=== PATIENT | female | born 1970 | race Two or more races ===

== ENCOUNTER 2022-01-02 06:01 | Day surgery (SDC) | payer OTHER ==
[~2022-01-02] VITALS: Ht 175.3 cm; Wt 79.4 kg
[2022-01-02] MEDS ORDERED: RECTICARE30 GM TOP (09:14)
[2022-01-02] MEDS ORDERED: PERCOCET 5-3251 EACH PO (09:14)
== END 2022-01-02 11:25 | disposition home or self-care (01) ==
LOC: CIR.AMB 06:01
PROVIDERS: ATTEND Surgery
DX: K60.3 Anal fistula (principal); Z20.822 Contact with and (suspected) exposure to COVID-19

== ENCOUNTER → 2022-04-14 07:31 | Outpatient (CLI) | payer OTHER ==
[~2022-04-14 07:31] MED LIST: LIPITOR40 M1 PO; PERCOCET 5-3251 EACH PO; RECTICARE30 GM TOP
== END | disposition home or self-care (01) ==
LOC: LAB 07:31
PROVIDERS: ATTEND Surgery
DX: K60.3 Anal fistula (principal); R19.4 Change in bowel habit; K92.1 Melena; R19.5 Other fecal abnormalities; D12.5 Benign neoplasm of sigmoid colon

== ENCOUNTER 2022-04-17 06:05 | Day surgery (SDC) | payer OTHER ==
[~2022-04-17] VITALS: Ht 182.9 cm; Wt 83.9 kg
[2022-04-17] MEDS ORDERED: RECTICARE30 GM TOP (08:14)
[2022-04-17] MEDS ORDERED: PERCOCET 5-3251 EACH PO (08:14)
== END 2022-04-17 16:25 | disposition home or self-care (01) ==
LOC: CIR.AMB 06:05
PROVIDERS: ATTEND Surgery
DX: K60.3 Anal fistula (principal); R19.4 Change in bowel habit; R19.5 Other fecal abnormalities; E78.5 Hyperlipidemia, unspecified; Z86.16 Personal history of COVID-19; R73.03 Prediabetes; Z20.822 Contact with and (suspected) exposure to COVID-19